=== PATIENT | male | born 1980 | race Caucasian/White ===

== ENCOUNTER 2021-08-29 12:42 | Emergency (ER) | payer MEDICAID ==
[~2021-08-29] VITALS: Ht 172.7 cm; Wt 69.2 kg
[2021-08-29 13:28] VITALS: BP 118/42
--- NOTE | 2021-08-29 13:37 | NUR ---
PT AMB TO [facility] W/O [facility]
--- NOTE | 2021-08-29 17:23 | NUR ---
ATTEMPTED TO CALL PATIENT IN LOBBY NO ANSWER
== END 2021-08-29 17:23 | disposition left against medical advice (07) ==
LOC: MED 12:42
DX: N50.811 Right testicular pain (principal); Z53.21 Procedure and treatment not carried out due to patient leaving prior to being seen by health care provider
CPT/HCPCS: 76870; 99281; Q0092

== ENCOUNTER 2021-09-11 01:40 | Emergency (ER) | payer MEDICAID ==
[~2021-09-11] VITALS: Ht 170.2 cm; Wt 68.0 kg
[2021-09-11 02:12] VITALS: BP 127/85
--- NOTE | 2021-09-11 02:19 | NUR ---
COVID-19 and flu swabs collected and sent to lab.
--- NOTE | 2021-09-11 03:50 | NUR ---
Patient ambulated to bed 1.
[2021-09-11] MEDS ORDERED: DEXAMETHASONE 10 MG/ML VIAL PO ONE (03:55)
[2021-09-11] MEDS ORDERED: KETOROLAC 30 MG/ML VIAL IM ONE (03:55)
--- NOTE | 2021-09-11 03:55 | NUR ---
ERMD AT BEDSIDE EXAMINING PT
--- NOTE | 2021-09-11 03:59 | NUR ---
41 Y/O MALE BIBS FROM HOME C/O SORE THROAT X2 DAYS. PT STATES HE HAS A NON PRODUCTIVE COUGH. 9/10 PAIN. A/OX4, GCS-15; UNLABORED BREATHING AND SPEAKING IN FULL SENTENCES; AMBULATORY W/O ASSISTANCE; SKIN PINK/WARM/DRY. DENIES N/V/D, FEVER, SOB, OR CP. PMHx: DENIES NKA
[2021-09-11] MEDS ORDERED: AMOX500C25 PO (04:05)
[2021-09-11] MEDS ORDERED: NAPR-54 PO (04:05)
[2021-09-11] MEDS ORDERED: ACET-10509 PO (04:05)
--- NOTE | 2021-09-11 04:15 | NUR ---
STREP SWAB COLLECTED AND WALKED TO LAB
[2021-09-11 04:33] VITALS: BP 125/82
--- NOTE | 2021-09-11 04:35 | NUR ---
Patient discharged with v/s stable. Written and verbal after care instructions given and explained. Patient alert, oriented and verbalized understanding of instructions. Ambulatory with steady gait. All questions addressed prior to discharge. ID band removed. Patient advised to follow up with PMD. Rx of TYLENOL EXTRA STRENGTH AB, AMOXICILLIN, AND NAPROSYN given. Patient educated on indication of medication including possible reaction and side effects. Opportunity to ask questions provided and answered. VSS, A/OX4, UNLABORED BREATHING, AMBULATORY, AND CALM DEMEANOR.
== END 2021-09-11 04:33 | disposition home or self-care (01) ==
LOC: MED 01:40
DX: J02.9 Acute pharyngitis, unspecified (principal); Z20.822 Contact with and (suspected) exposure to COVID-19; R05.9 Cough, unspecified; R09.81 Nasal congestion
CPT/HCPCS: 87081; 87426; 87804; 96372; 99283; J1100; J1885

== ENCOUNTER 2023-01-27 16:08 | Emergency (ER) | payer SELFPAY ==
[~2023-01-27] VITALS: Ht 170.2 cm; Wt 63.5 kg
[~2023-01-27 16:08] MED LIST: ACET-10509 PO; AMOX500C25 PO; NAPR-54 PO
[2023-01-27 16:23] VITALS: BP 157/114; PULSE 138; RESP 20; TEMP 99.5; O2SAT 99
[2023-01-27] MEDS ORDERED: LORazepam 2 MG/ML VIAL IVP ONE (16:40)
[2023-01-27] MEDS ORDERED: NACL 0.9% 1,000 ML IV ONE (16:40)
[2023-01-27] MEDS ORDERED: LORazepam 2 MG/ML VIAL ONE (17:51)
[2023-01-27 18:09] LABS: BASOPHILS # (AUTO) 0.1 K/uL (0.00-0.22); BASOPHILS % (AUTO) 0.8 % (0.0-2.0); EOSINOPHILS % (AUTO) 0.2 % (0.0-4.0); HEMATOCRIT 42.6 % (36-52); HEMOGLOBIN 14.5 g/dL (12.0-18.0); LYMPHOCYTES # (AUTO) 1.9 K/uL (2.0-11.5); LYMPHOCYTES % (AUTO) 13.6 % (20.5-51.1); MEAN CORPUSCULAR HEMOGLOBIN 29 pg (27-31); MEAN CORPUSCULAR HGB CONC 34 g/dL (33-37); MEAN CORPUSCULAR VOLUME 84.3 fL (80-94); MONOCYTES # (AUTO) 0.8 K/uL (0.8-1.0); NEUTROPHILS # (AUTO) 10.9 K/uL (1.8-7.7); NEUTROPHILS % (AUTO) 79.4 % (42.2-75.2); PLATELET COUNT (AUTO) 366 K/uL (140-450); RED BLOOD CELL COUNT(AUTO) 5.05 MIL/uL (4.20-6.10); RED CELL DISTRIBUTION WIDTH 14.1 % (11.6-13.7); WHITE BLOOD COUNT (AUTO) 13.7 K/uL (4.8-10.8)
[2023-01-27 18:35] LABS: ALANINE AMINOTRANSFERASE 21 U/L (12-78); ALBUMIN 5.2 g/dL (3.4-5.0); ALKALINE PHOSPHATASE 92 U/L (50-136); ANION GAP 18.4 (8-16); ASPARTATE AMINOTRANSFERASE 20 U/L (15-37); CALCIUM 9.7 mg/dL (8.5-10.1); CHLORIDE 102 mmol/L (98-107); CREATININE 1.6 mg/dL (0.6-1.3); GFR ARICAN-AMERICAN 61 mL/min (>90); GFR NON ARICAN-AMERICAN 51 mL/min (>90); GLUCOSE 122 mg/dL (74-106); POTASSIUM 3.4 mmol/L (3.5-5.1); SODIUM SERUM 142 mmol/L (136-145); TOTAL BILIRUBIN 1.6 mg/dL (0.0-1.0); TOTAL PROTEIN, SERUM 9.1 g/dL (6.4-8.2); UREA NITROGEN, BLOOD 21 mg/dL (7-18)
[2023-01-27 19:05] VITALS: BP 142/78; PULSE 98; RESP 20; TEMP 98; O2SAT 100
== END 2023-01-27 19:05 ==
LOC: MED 16:08
DX: Z02.89 Encounter for other administrative examinations (principal); R00.0 Tachycardia, unspecified; R07.9 Chest pain, unspecified; Z79.899 Other long term (current) drug therapy; Z79.2 Long term (current) use of antibiotics; Z79.1 Long term (current) use of non-steroidal anti-inflammatories (NSAID)
CPT/HCPCS: 36415; 80053; 84484; 85025; 93005; 96361; 96374; 99284; J2060; J7030

== ENCOUNTER 2023-05-13 14:38 | Emergency (ER) | payer MEDICAID, OTHER ==
[~2023-05-13] VITALS: Ht 172.7 cm; Wt 72.6 kg
[2023-05-13 14:46] VITALS: BP 97/65; PULSE 82; RESP 16; TEMP 98; O2SAT 96
[2023-05-13] MEDS ORDERED: RISP2TAB75 PO (15:17)
[2023-05-13 15:20] VITALS: BP 122/68; PULSE 88; RESP 16; TEMP 98; O2SAT 99
== END 2023-05-13 15:20 | disposition home or self-care (01) ==
LOC: MED 14:38
DX: F20.9 Schizophrenia, unspecified (principal); Z76.0 Encounter for issue of repeat prescription; Z79.899 Other long term (current) drug therapy
CPT/HCPCS: 99281

== ENCOUNTER 2023-08-26 14:15 | Emergency (ER) | payer OTHER ==
[~2023-08-26] VITALS: Ht 172.7 cm; Wt 68.0 kg
[~2023-08-26 14:15] MED LIST changes: +NAPR-337 PO; -NAPR-54 PO; +RISP-32 PO
[2023-08-26 14:33] VITALS: BP 116/74; PULSE 103; RESP 13; TEMP 97.3; O2SAT 93
[2023-08-26] MEDS: NACL 0.9% 1,000 ML IV ONE ×2 (14:40→17:52)
[2023-08-26] MEDS: ONDANSETRON 4 MG/2 ML VIAL IVP ONE (14:41)
[2023-08-26] MEDS: NALOXONE 0.4 MG/ML VIAL IVP ONE ×2 (14:41→18:13)
[2023-08-26 16:24] LABS: BASOPHILS # (AUTO) 0.1 K/uL (0.00-0.22); BASOPHILS % (AUTO) 0.9 % (0.0-2.0); EOSINOPHILS % (AUTO) 0.4 % (0.0-4.0); HEMOGLOBIN 12.8 g/dL (12.0-18.0); LYMPHOCYTES # (AUTO) 2.1 K/uL (2.0-11.5); LYMPHOCYTES % (AUTO) 21.5 % (20.5-51.1); MEAN CORPUSCULAR HEMOGLOBIN 28 pg (27-31); MEAN CORPUSCULAR HGB CONC 34 g/dL (33-37); MEAN CORPUSCULAR VOLUME 84.6 fL (80-94); MONOCYTES # (AUTO) 0.9 K/uL (0.8-1.0); MONOCYTES % (AUTO) 9.8 % (1.7-9.3); NEUTROPHILS # (AUTO) 6.5 K/uL (1.8-7.7); NEUTROPHILS % (AUTO) 67.4 % (42.2-75.2); PLATELET COUNT (AUTO) 258 K/uL (140-450); RED BLOOD CELL COUNT(AUTO) 4.49 MIL/uL (4.20-6.10); RED CELL DISTRIBUTION WIDTH 15.1 % (11.6-13.7); WHITE BLOOD COUNT (AUTO) 9.6 K/uL (4.8-10.8)
[2023-08-26 16:30] LABS: AMPHETAMINE, URINE NEGATIVE ng/ml (NEG <=1000); BARBITURATE, URINE NEGATIVE ng/ml (NEG <=200); BENZODIAZEPINE, URINE NEGATIVE ng/mL (NEG <=200); CANNABINOID, URINE NEGATIVE ng/mL (NEG <=50); COCAINE, URINE NEGATIVE ng/mL (NEG <=300)
[2023-08-26 16:31] LABS: OPIATE, URINE NEGATIVE ng/mL (NEG <=2000); PHENCYCLIDINE SCREEN,URINE NEGATIVE ng/mL (NEG <=25)
[2023-08-26 16:36] LABS: ANION GAP 17.6 (8-16); CREATININE 1.5 mg/dL (0.6-1.3); POTASSIUM 3.6 mmol/L (3.5-5.1)
[2023-08-26 16:41] LABS: ALCOHOL, BLOOD < 3 mg/dL (<10)
[2023-08-26 16:58] LABS: ACETAMINOPHEN < 0.5 ug/ml (10-30); SALICYLATE < 2.8 mg/dL (2.8-20.0)
[2023-08-26] MEDS ORDERED: NALO4SPR NS (18:09)
[2023-08-26 18:10] VITALS: TEMP 97.3
[2023-08-26 21:07] VITALS: BP 106/70; PULSE 77; RESP 10; O2SAT 96
== END 2023-08-26 23:43 | disposition home or self-care (01) ==
LOC: MED 14:15
DX: T40.411A Poisoning by fentanyl or fentanyl analogs, accidental (unintentional), initial encounter (principal); R41.82 Altered mental status, unspecified; Z79.1 Long term (current) use of non-steroidal anti-inflammatories (NSAID); Z79.2 Long term (current) use of antibiotics; Z79.899 Other long term (current) drug therapy; Y92.89 Other specified places as the place of occurrence of the external cause
CPT/HCPCS: 36415; 80048; 80305; 85025; 93005; 96361; 96374; 96375; 99284; G0480; G0482; J2310; J2405; J7030; 99285